=== PATIENT | male | born 1960 | race African-American/Black ===

== ENCOUNTER 2022-01-18 17:02 | Inpatient (IN) | payer MEDICAID ==
[~2022-01-18] VITALS: Ht 170.2 cm; Wt 79.4 kg
[2022-01-18] MEDS ORDERED: METOCLOPRAMIDE HCL 10MG/2ML VIAL IV ONE (22:30)
[2022-01-18] MEDS ORDERED: ACETAMINOPHEN 325MG TABLET PO ONE (22:30)
[2022-01-18 23:04] LABS: HEMATOCRIT. 43.9 % (42.0-52.0); HEMOGLOBIN. 14.9 g/dL (14.0-18.0); MEAN CORPUSCULAR HEMOGLOBIN 30.5 pg (28.0-32.0); MEAN CORPUSCULAR VOLUME 90.1 fL (80.0-94.0); MEAN PLATELET VOLUME 8.2 fl (7.4-10.4); PLATELET 325 x1000/uL (130-400); RED BLOOD CELL COUNT 4.87 mill/uL (4.7-6.1); RED CELL DISTRIBUTION WIDTH 13.9 % (11.6-14.6)
[2022-01-18 23:06] LABS: CHLORIDE 105 mEq/L (98-107)
[2022-01-18 23:20] LABS: ETHANOL BLOOD < 10 mg/dL
[2022-01-19 00:09] LABS: PLATELET ESTIMATE NORMAL
[2022-01-19] MEDS ORDERED: ASPIRIN 81MG TABLET PO ONE (02:00)
[2022-01-19] MEDS ORDERED: ACETAMINOPHEN 325MG TABLET PO NR (02:30)
[2022-01-19] MEDS ORDERED: ASPIRIN 81MG TABLET PO NR (02:30)
[2022-01-19] MEDS ORDERED: METOCLOPRAMIDE HCL 10MG/2ML VIAL IV NR (02:30)
[2022-01-19] MEDS: AMLODIPINE 10MG TABLET PO SCH (09:15)
[2022-01-19] MEDS ORDERED: ONDANSETRON HCL 4MG/2ML INJ IV PRN (09:15)
[2022-01-19] MEDS ORDERED: ACETAMINOPHEN 325MG TABLET PO PRN (09:15)
[2022-01-19 12:00] VITALS: BP 143/75
[2022-01-19 15:05] VITALS: BP 143/75
[2022-01-19] MEDS ORDERED: ASPI-1497 PO (15:53)
[2022-01-19 16:00] VITALS: BP 148/70
[2022-01-19 20:23] LABS: CLARITY URINE CLEAR (CLEAR); COLOR URINE YELLOW (YELLOW); KETONES URINE TRACE (NEGATIVE); LEUKOCYTE ESTERASE URINE TRACE (NEGATIVE); NITRITE URINE NEGATIVE (NEGATIVE); OCCULT BLOOD URINE NEGATIVE (NEGATIVE); PH URINE 5.5 (4.5-8.0); PROTEIN URINE TRACE (NEGATIVE); SPECIFIC GRAVITY URINE 1.028 (1.005-1.030); UROBILINOGEN URINE 0.2 E.U./dL (0.2-1.0)
[2022-01-19 21:21] LABS: *AMPHETAMINES SCREEN URINE NEGATIVE (NEGATIVE); *BARBITURATES SCREEN URINE NEGATIVE (NEGATIVE); *BENZODIAZEPINES SCREEN URINE NEGATIVE (NEGATIVE); *COCAINE SCREEN URINE NEGATIVE (NEGATIVE); CANNABINOID URINE SCREEN NEGATIVE (NEGATIVE); METHADONE URINE SCREEN NEGATIVE (NEGATIVE); OPIATES URINE SCREEN NEGATIVE (NEGATIVE); PHENCYCLIDINE URINE SCREEN NEGATIVE (NEGATIVE)
[2022-01-20 08:00] VITALS: BP 136/93
[2022-01-20] MEDS: AMLODIPINE 10MG TABLET PO SCH (08:39)
[2022-01-20 12:00] VITALS: BP 148/66
[2022-01-20] MEDS ORDERED: AMLO10TA80 PO (13:03)
[2022-01-20] MEDS ORDERED: POTASSIUM CHLORIDE 20MEQ TABLET SR PO SCH (14:00)
[2022-01-20 16:00] VITALS: BP 149/85
[2022-01-20 20:00] VITALS: BP 151/77
[2022-01-20] MEDS ORDERED: ATORVASTATIN CALCIUM 20MG TABLET PO SCH (21:00)
[2022-01-20] MEDS: METOPROLOL TARTRATE 25MG TABLET PO SCH (21:20)
[2022-01-21] VITALS: BP 149/77
[2022-01-21 04:00] VITALS: BP 146/91
[2022-01-21 08:00] VITALS: BP 141/89
[2022-01-21] MEDS ORDERED: REGADENOSON 0.4 MG/5 ML IV ONE (08:36)
[2022-01-21] MEDS: METOPROLOL TARTRATE 25MG TABLET PO SCH (09:00)
[2022-01-21] MEDS ORDERED: AMLODIPINE 5MG TABLET PO SCH (09:00)
[2022-01-21 11:55] VITALS: BP_SYST 147; BP_SYST 173; BP_DIAS 86
[2022-01-21 12:00] VITALS: BP 145/75
[2022-01-21] MEDS ORDERED: LOSA50TA41 MT (12:42)
[2022-01-21] MEDS ORDERED: AMLO10TA80 MT (12:43)
[2022-01-21] MEDS ORDERED: REGADENOSON 0.4 MG/5 ML IV SCH (13:45)
== END 2022-01-21 16:36 | disposition home or self-care (01) | DRG 243 ==
LOC: ER 17:02 → 7WST 01-19 03:09 → EDBEDREQ 01-19 03:10 → EDBEDREQTM 01-19 03:10
PROVIDERS: ADMIT Internal Medicine; ATTEND Internal Medicine
DX: K21.9 Gastro-esophageal reflux disease without esophagitis (principal); I10 Essential (primary) hypertension; R51.9 Headache, unspecified; I25.10 Atherosclerotic heart disease of native coronary artery without angina pectoris; Z20.822 Contact with and (suspected) exposure to COVID-19; Z87.891 Personal history of nicotine dependence; Z91.14 Patient's other noncompliance with medication regimen
CPT/HCPCS: 36415; 71045; 78452; 80053; 80061; 80305; 80320; 81003; 83880; 84484; 85025; 87426; 93005; 93017; 93306; 99285; A9500; J2765; J2785; G0480